=== PATIENT | male | born 1995 | race African-American/Black ===

== ENCOUNTER 2017-05-22 08:29 | Emergency (ER) | payer OTHER ==
[2017-05-22] MEDS ORDERED: NO MEDICATIONS (08:41)
== END 2017-05-22 09:43 | disposition home or self-care (01) ==
LOC: SED 08:29
DX: S31.831A Laceration without foreign body of anus, initial encounter (principal); M70.841 Other soft tissue disorders related to use, overuse and pressure, right hand; K59.00 Constipation, unspecified; J45.909 Unspecified asthma, uncomplicated; F20.9 Schizophrenia, unspecified; F17.210 Nicotine dependence, cigarettes, uncomplicated; X58.XXXA Exposure to other specified factors, initial encounter; Y92.9 Unspecified place or not applicable
CPT/HCPCS: 29075; 99283

== ENCOUNTER 2017-06-19 09:47 | Emergency (ER) | payer OTHER ==
--- NOTE | ~2017-06-19 | CR72 ---
[facility] A Service of [facility] & [facility] RADIOLOGY TEXT RESULTS PATIENT: GRECIA MICHELLE LOCATION: SED : 97 UNIT #: [id number] AGE: [address]: Epi Ryan MD SEX: M ORDER DR: [id number] [place] [id number] E MR#: [id number] Acc #: [id number] NAME: GRECIA MICHELLE : 1995 SEX: M STUDY DATE/TIME: 06/19/2017 11:15 UNIT: SED ROOM: STUDY DESCRIPTION: CR Chest Single View Portable Attending Physician: Epi Ryan M.D. Ordering Physician: Epi Ryan M.D. Primary Care Physician: No Primary Care Physician MEDICAL IMAGING REPORT This report is preliminary unless electronic signature is present. EXAM Portable chest 06/19/2017, [facility]. HISTORY 21-year-old male, syncopal episode. 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 Sustained trauma to the head. Headaches with a right side neck pain, left knee pain, loss of memory. Dehydrated and weakness. COMPARISON None. FINDINGS AP portable chest demonstrates normal cardiac size and configuration. Hilar structures and mediastinal contours are preserved. Bilateral lungs are expanded and clear. Costophrenic angles are clear. Bony thorax is normal. IMPRESSION Negative chest. Dictated by... Elan Topete M.D. THIS IS AN ELECTRONICALLY VERIFIED REPORT Elan Topete M.D. at 06/19/2017 3:52 PM MIKEB/nael TD: 06/19/2017 15:39 JOB #: [id number] MEDICAL IMAGING REPORT Page 1 of 1
--- NOTE | ~2017-06-19 | CR206 ---
[facility]. [facility] A Service of [facility] & [facility] RADIOLOGY TEXT RESULTS PATIENT: GRECIA MICHELLE LOCATION: SED : 97 UNIT #: [id number] AGE: [address]: Epi Ryan MD SEX: M ORDER DR: [id number] [place] [id number] E MR#: [id number] Acc #: [id number] NAME: GRECIA MICHELLE : 1995 SEX: M STUDY DATE/TIME: 06/19/2017 11:15 UNIT: SED ROOM: STUDY DESCRIPTION: CR Pelvis 1 or 2 Views Attending Physician: Epi Ryan M.D. Ordering Physician: Epi Ryan M.D. Primary Care Physician: No Primary Care Physician MEDICAL IMAGING REPORT This report is preliminary unless electronic signature is present. 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 Memory loss. Pain pelvis left knee. FINDINGS AP pelvis demonstrates normal bone structure. There is no pelvic fracture. Bilateral hips are normal. Sacroiliac joints are preserved bilaterally. IMPRESSION Negative AP pelvis. Dictated by... Elan Topete M.D. THIS IS AN ELECTRONICALLY VERIFIED REPORT Elan Topete M.D. at 06/20/2017 8:11 AM Blanche TD: 06/19/2017 18:08 JOB #: [id number] MEDICAL IMAGING REPORT Page 1 of 1
--- NOTE | ~2017-06-19 | CR172 ---
[facility] A Service [facility] RADIOLOGY TEXT RESULTS PATIENT: GRECIA MICHELLE LOCATION: SED : 97 UNIT #: [id number] AGE: [address]: Epi Ryan MD SEX: M ORDER DR: [id number] [place] [id number] E MR#: [id number] Acc #: [id number] NAME: GRECIA MICHELLE : 1995 SEX: M STUDY DATE/TIME: 06/19/2017 11:15 UNIT: SED ROOM: STUDY DESCRIPTION: CR Knee 3 Views Lt Attending Physician: Epi Ryan M.D. Ordering Physician: Epi Ryan M.D. Primary Care Physician: Primary Care Physician No MEDICAL IMAGING REPORT This report is preliminary unless electronic signature is present. EXAM Left knee 06/19/2017 INDICATIONS 21-year-old male with syncopal episode today, hit head. Pain in the left knee worse with movement today. TECHNIQUE 3 views of the left knee were performed COMPARISON No comparisons FINDINGS No acute fracture. No joint effusion. Incidental fabella. Incidental enthesopathic change of the inferior patella. Somewhat laterally positioned patella on the frontal view probably artifactual related to nonstandard positioning rather than representing subluxation of the patella. IMPRESSION 1. No acute fracture. 2. No joint effusion or significant degenerative change. Dictated by... Janes Bravo M.D. THIS IS AN ELECTRONICALLY VERIFIED REPORT Janes Bravo M.D. at 06/20/2017 7:09 AM SONIA/sasha TD: 06/19/2017 18:38 [facility] A [facility] RADIOLOGY TEXT RESULTS PATIENT: GRECIA MICHELLE LOCATION: SED : 97 UNIT #: [id number] AGE: [address]: Epi Ryan MD SEX: M ORDER DR: JOB #: [id number] MEDICAL IMAGING REPORT Page 1 of 1
--- NOTE | ~2017-06-19 | CT52 ---
[facility] A Service [facility] RADIOLOGY TEXT RESULTS PATIENT: GRECIA MICHELLE LOCATION: SED : 97 UNIT #: [id number] AGE: [address]: Epi Ryan MD SEX: M ORDER DR: [id number] [place] [id number] E MR#: [id number] Acc #: [id number] NAME: GRECIA MICHELLE : 1995 SEX: M STUDY DATE/TIME: 06/19/2017 10:09 UNIT: SED ROOM: STUDY DESCRIPTION: CT Cervical Spine Wo Cont Attending Physician: Epi Ryan M.D. Ordering Physician: Epi Ryan M.D. Primary Care Physician: Primary Care Physician No MEDICAL IMAGING REPORT This report is preliminary unless electronic signature is present. EXAM CT of the cervical spine without contrast dated 06/19/2017 COMPARISON None HISTORY Patient passed out and hit head with loss of consciousness. Pain in the right side of the neck and headache since then today. TECHNIQUE This CT was performed with one or more of the following radiation dose reduction techniques: automatic exposure control, adjustment of mA and/or kV according to patient size, and iterative reconstruction. FINDINGS CT of the cervical spine was obtained as per the protocol. The study demonstrates normal bony architecture. There is no evidence of fracture or subluxation. The bony cervical canal is preserved. The surrounding prevertebral and paravertebral soft tissues are unremarkable. Imaged brain and lung apices are unremarkable. IMPRESSION Within normal limits. RECONSTRUCTION IN TWO PLANES Sagittal and coronal reconstruction was obtained as per the protocol. The study demonstrates normal vertebral body height and alignment. There is no acute fracture or subluxation. The bony vertebral canal is preserved. There is no evidence of perched or jumped facets. The imaged skull base and lung apices are normal. [facility] A Service [facility] RADIOLOGY TEXT RESULTS PATIENT: GRECIA MICHELLE LOCATION: SED : 97 UNIT #: [id number] AGE: [address]: Epi Ryan MD SEX: M ORDER DR: IMPRESSION Within normal limits. Dictated by... Hubert Shore M.D. THIS IS AN ELECTRONICALLY VERIFIED REPORT Hubert Shore M.D. at 06/19/2017 7:34 PM CPR/to TD: 06/19/2017 18:41 JOB #: [id number] MEDICAL IMAGING REPORT Page 1 of 1
--- NOTE | ~2017-06-19 | CT71 ---
[facility] A Service [facility] RADIOLOGY TEXT RESULTS PATIENT: GRECIA MICHELLE LOCATION: SED : 97 UNIT #: [id number] AGE: [address]: Epi Ryan MD SEX: M ORDER DR: [id number] [place] [id number] E MR#: [id number] Acc #: [id number] NAME: GRECIA MICHELLE : 1995 SEX: M STUDY DATE/TIME: 06/19/2017 11:06 UNIT: SED ROOM: STUDY DESCRIPTION: CT Head Wo Contrast Attending Physician: Epi Ryan M.D. Ordering Physician: Epi Ryan M.D. Primary Care Physician: Primary Care Physician No MEDICAL IMAGING REPORT This report is preliminary unless electronic signature is present. EXAM CT head without contrast dated 06/19/2017 COMPARISON None HISTORY Patient passed out and hit head with loss of consciousness. Pain in the right side of the neck and headache all over. TECHNIQUE Axial noncontrast images were obtained from the skull base to the vertex. This CT exam was performed with one or more of the following radiation dose reduction techniques: automatic exposure control, adjustment of mA and/or kV according to patient size, and iterative reconstruction. FINDINGS Ventricular size and configuration are normal. There is no evidence of acute infarct or hemorrhage. There are no extraaxial fluid collections. No mass lesion or mass effect is seen. There are no skull fractures. Minimal right maxillary sinus mucosal thickening. IMPRESSION Normal noncontrast head CT. Dictated by... Hubert Shore M.D. THIS IS AN ELECTRONICALLY VERIFIED REPORT [facility] A Service [facility] RADIOLOGY TEXT RESULTS PATIENT: GRECIA MICHELLE LOCATION: SED : [birth year] UNIT #: [id number] AGE: [address]: Epi Ryan MD SEX: M ORDER DR: Hubert Shore M.D. at 06/19/2017 7:34 PM CPR/to TD: 06/19/2017 18:32 JOB #: [id number] MEDICAL IMAGING REPORT Page 1 of 1
--- NOTE | ~2017-06-19 | EKG ---
PATIENT: GRECIA MICHELLE UNIT #: [id number] Ventricular Rate: 63 BPM Atrial Rate: 63 BPM P-R Interval: 142 ms QRS Duration: 68 ms Q-T Interval: 370 ms QTC Calculation(Bezet): 378 ms P Mason: 39 degrees Calculated R Mason: 60 degrees Calculated T Mason: 37 degrees Diagnosis Line: Normal sinus rhythm with sinus arrhythmia Diagnosis Line: Nonspecific ST and T wave abnormality Diagnosis Line: Abnormal ECG Diagnosis Line: No previous ECGs available Diagnosis Line: Confirmed by ANASTACIA KATHLEEN MD ([id number]) on Diagnosis Line: 06/21/2017 8:40:37 AM INTERPRETING MD: HEVER RAGSDALE
[~2017-06-19 09:47] MED LIST: NO MEDICATIONS
[2017-06-19 10:47] LABS: BASOPHIL# 0.1 X10e3 (0-0.3); BASOPHIL% 1.1 % (0-2.5); EOSINOPHIL# 0.1 X10e3 (0-0.7); EOSINOPHIL% 1.7 % (0.0-7.0); HEMATOCRIT 42.8 % (38.0-50.0); HEMOGLOBIN 14.3 gm/dL (13.0-16.0); LYMPHOCYTE# 2.1 X10e3 (1.0-3.5); LYMPHOCYTE% 34.6 % (17.0-45.0); MEAN CELL VOLUME 92.6 FL (83-96); MEAN CORPUSCULAR HGB CONC 33.5 g/dL (30-36); MEAN PLATELET VOLUME 8.4 FL (6.5-11.5); MONOCYTE# 0.6 X10e3 (0-1.0); MONOCYTE% 9.3 % (3.0-12.0); NEUTROPHIL# 3.2 X10e3 (1.5-7.1); NEUTROPHIL% 53.3 % (40-75); PLATELET COUNT 227 X10e3 (140-420); RED BLOOD COUNT 4.62 X10e (3.90-5.60); RED CELL DISTRIBUTION WIDTH 13.8 % (11.0-15.5)
[2017-06-19 10:51] LABS: DIFF IND NO
[2017-06-19 11:06] LABS: ALBUMIN SERUM 4.3 g/dL (3.5-5.0); BILIRUBIN, DIRECT 0.1 mg/dL (0.0-0.2); BILIRUBIN,INDIRECT 0.6 mg/dL (0.0-0.9); BILIRUBIN,TOTAL 0.7 mg/dL (0.2-2.0); CALCIUM SERUM 8.3 mg/dL (8.4-10.2); CREATININE SERUM 0.8 mg/dL (0.6-1.4); GLOM FILT RATE Estimated 150.2 mL/min (>60); POTASSIUM 3.4 mmol/L (3.5-5.1); PROTEIN TOTAL SERUM 6.1 g/dL (6.0-8.3)
== END 2017-06-19 12:27 | disposition home or self-care (01) ==
LOC: SED 09:47
PROVIDERS: Emergency Medicine
DX: T67.5XXA Heat exhaustion, unspecified, initial encounter (principal); F17.200 Nicotine dependence, unspecified, uncomplicated; Z91.030 Bee allergy status
CPT/HCPCS: 36415; 70450; 71010; 72125; 72170; 73562; 80048; 80076; 82550; 82947; 85025; 93005; 96360; 99285